=== PATIENT | male | born 1980 | race Two or more races ===

== ENCOUNTER 2018-08-11 14:11 | Emergency (ER) | payer BC ==
[~2018-08-11] VITALS: Ht 177.8 cm; Wt 117.9 kg
[2018-08-11] MEDS: cloNIDine HCL 0.1 MG TABLET PO ONE (14:45)
[2018-08-11 14:47] LABS: BASO # 0.1 x10^3/uL (0.0-0.2); BASO % 1 % (0-3); EOS # 0.3 x10^3/uL (0.0-0.7); EOS % 3 % (0-3); HEMATOCRIT 43.9 % (39.0-53.0); HEMOGLOBIN 15.5 g/dL (13.0-17.5); LYMPH # 3.5 x10^3/uL (1.0-4.8); LYMPH % 37 % (24-48); MEAN CORPUSCULAR HEMOGLOBIN 31 pg (25-35); MEAN CORPUSCULAR HGB CONC 35 g/dL (31-37); MEAN CORPUSCULAR VOLUME 88 fL (79-100); MONO # 0.8 x10^3/uL (0.0-1.1); MONO % 8 % (0-9); NEUT # 4.8 x10^3uL (1.8-7.7); NEUT % 51 % (31-73); PLATELET COUNT 213 x10^3/uL (140-400); RED BLOOD COUNT 4.97 x10^6/uL (4.30-5.70); RED CELL DISTRIBUTION WIDTH 13.5 % (11.5-14.5); WHITE BLOOD COUNT 9.6 x10^3/uL (4.0-11.0)
[2018-08-11 14:58] LABS: CALCIUM 8.7 mg/dL (8.5-10.1); CREATININE 0.8 mg/dL (0.7-1.3); GFR 107.6; POTASSIUM 3.8 mmol/L (3.5-5.1)
[2018-08-11 15:05] LABS: ALBUMIN 3.8 g/dL (3.4-5.0); ALBUMIN/GLOBULIN RATIO 1.3 (1.0-1.7); TOTAL BILIRUBIN 0.3 mg/dL (0.2-1.0); TOTAL PROTEIN 6.8 g/dL (6.4-8.2)
--- NOTE | 2018-08-11 15:20 | PHYS DOC ---
Past Medical History Past Medical History: No Pertinent History Alcohol Use: None Drug Use: None Adult General Chief Complaint Chief Complaint: CHEST PAIN HPI HPI Patient is a 38 year old male who presents with substernal chest pressure/ heaviness for the past one week. Patient also reports mild dyspnea, no nausea vomiting or sweats. No abdominal pain. Symptoms coincide with patient discontinuing smoking and starting Chantix. Last cigarette was over one week ago. Patient has not been taking blood pressure medication over the past week due to concern of occasional reaction with his Chantix. Blood pressure 90 ED arrival was 208/100. Denies headache, neck pain, extremity weakness or loss of sensation. No other acute symptoms or complaints.[] Review of Systems Review of Systems Review symptoms as per history of present illness. All other review symptoms are negative. All other systems were reviewed and found to be within normal limits, except as documented in this note. Current Medications Current Medications Allergies Allergies Physical Exam Physical Exam Constitutional: Well developed, well nourished, no acute distress, non-toxic appearance. [] HENT: Normocephalic, atraumatic, bilateral external ears normal, oropharynx moist, no oral exudates, nose normal. [] Eyes: PERRLA, EOMI, conjunctiva normal, no discharge. [] Neck: Normal range of motion, no tenderness, supple, no stridor. [] Cardiovascular:Heart rate regular rhythm, no murmur [] Lungs & Thorax: Bilateral breath sounds clear to auscultation [] Abdomen: Bowel sounds normal, soft, no tenderness. [] Skin: Warm, dry, no erythema, no rash. [] Back: No tenderness, no CVA tenderness. [] Extremities: No tenderness, no cyanosis, no clubbing, ROM intact, no edema. [] Neurologic: Alert and oriented X 3, normal motor function, normal sensory function, no focal deficits noted. [] Psychologic: Affect normal, judgement normal, mood normal. [] Current Patient Data Vital Signs Vital Signs Date Time Temp Pulse Resp B/P (MAP) Pulse Ox O2 Delivery O2 Flow Rate FiO2 08/11/18 14:20 98.1 77 18 173/101 (125) 98 Room Air 98.1 EKG EKG [EKG: Normal sinus rhythm, no acute ST-T wave changes on pulmonary ED review.] Radiology/Procedures Radiology/Procedures [Chest x-ray: No acute cardiopulmonary disease.] Course & Med Decision Making Course & Med Decision Making Pertinent Labs and Imaging studies reviewed. (See chart for details) [Atypical chest pain with accelerated hypertension. Clonidine given. EKG, troponin negative. Will admit for further observation and cardiac evaluation. Courtesy bridge orders provided. After thorough repeat conversation with the patient regarding benefits risks and alternatives of hospital admission for evaluation of cardiac related chest pain, the patient verbalizes his understanding and wishes instead be discharged from the emergency department. He prefers to follow-up with his primary care physician for outpatient workup. Patient is instructed to return to the hospital or ER if he changes his mind regarding hospital admission or if symptoms worsen. Dragon Disclaimer Dragon Disclaimer This electronic medical record was generated, in whole or in part, using a voice recognition dictation system. Departure Departure Impression: Primary Impression: Chest pain Additional Impression: Accelerated hypertension Disposition: ADMITTED INPATIENT Admitting Physician: Jose Greenwood Condition: GUARDED Referrals: JAKE PERKINS MD (PCP) Problem Qualifiers THERESE PADILLA DO Aug 11, 2018 15:20
[2018-08-11] MEDS ORDERED: ONDANSETRON PF 4 MG/2 ML VIAL. IV PRN (15:30)
--- NOTE | 2018-08-11 15:38 | RAD ---
Portable chest, 08/11/2018: HISTORY: Chest pain The heart size and pulmonary vascularity are normal. No pulmonary infiltrate is seen. There is no evidence of pleural fluid. IMPRESSION: No acute cardiopulmonary abnormality is detected. Electronically signed by: Sp Joshua MD (08/11/2018 3:35 PM) [facility]
--- NOTE | 2018-08-11 15:58 | EKG ---
[facility] [address] [place] [address] Test Date: 2018-08-11 Test Time: 14:27:38 Pat Name: MARY BRODERICK Department: Room: Gender: M Cleaning Professional: : 1980 Requested By: THERESE PADILLA Order Number: [id number] Reading MD: Jeremy Manning MD Measurements Intervals [place] Rate: 74 P: 24 [place]: 136 QRS: 52 QRSD: 90 T: 18 QT: 382 QTc: 429 Interpretive Statements SINUS RHYTHM Electronically Signed On 08-15-2018 10:53:52 CDT by Jeremy Manning MD
[2018-08-11 16:48] VITALS: BP 137/76
--- NOTE | 2018-08-11 16:49 | PDOC1 ---
History and Physical Date of Admission Date of Admission DATE: 08/11/18 TIME: 16:49 Identification/Chief Complaint Chief Complaint LEFT ANTERIOR CHEST PAIN, NO RADIATION, NOT RELATED TO FOOD Past Medical History Past Medical History Past Medical History: No Pertinent History Alcohol Use: None is a smoker father from stomach cancer Drug Use: None Cardiovascular: No pertinent hx Psych: No pertinent hx Dermatology: No pertinent hx Past Surgical History Past Surgical History: No pertinent history Family History Family History: Cancer Social History Smoke: 1 pack per day ALCOHOL: occassional Drugs: None Current Problem List Problem List Problems Medical Problems: (1) Accelerated hypertension Status: Acute (2) Chest pain Status: Acute Current Medications Current Medications Current Medications Clonidine HCl (Catapres) 0.2 mg 1X ONCE PO Last administered on 08/11/18at 14: 45; Start 08/11/18 at 14:45; Stop 08/11/18 at 14:55; Status DC Ondansetron HCl (Zofran) 4 mg PRN Q8HRS PRN IV NAUSEA/VOMITING; Start at 15:30; Stop 08/12/18 at 15:29 Allergies Allergies: Coded Allergies: No Known Drug Allergies (Unverified , 08/11/18) ROS General: No: Chills, Night Sweats, Fatigue, Malaise, Appetite, Other PSYCHOLOGICAL ROS: No: Anxiety, Behavioral Disorder, Concentration difficultie , Decreased libido, Depression, Disorientation, Hallucinations, Hostility, Irritablity, Memory difficulties, Mood Swings, Obsessive thoughts, Physical abuse, Sexual abuse, Sleep disturbances, Suicidal ideation, Other Eyes: No Blurry vision, No Decreased vision, No Double vision, No Dry eyes, No Excessive tearing, No Eye Pain, No Itchy Eyes, No Loss of vision, No Photophobia , No Scotomata, No Uses contacts, No Uses glasses, No Other HEENT: No: Heacaches, Visual Changes, Hearing change, Nasal congestion, Nasal discharge, Oral lesions, Sinus pain, Sore Throat, Epistaxis, Sneezing, Snoring, Tinnitus, Vertigo, Vocal changes, Other ALLERGY AND IMMUNOLOGY: No: Hives, Insect Bite Sensitivity, Itchy/Watery Eyes, Nasal Congestion, Post Nasal Drip, Seasonal Allergies, Other Hematological and Lymphatic: No: Bleeding Problems, Blood Clots, Blood Transfusions, Brusing, Night Sweats, Pallor, Swollen Lymph Nodes, Other Respiratory: No: Cough, Hemoptysis, Orthopnea, Pleuritic Pain, Shortness of breath, SOB with excertion, Sputum Changes, Stridor, Tachypnea, Wheezing, Other Cardiovascular: yes Chest Pain Gastrointestinal: No Nausea, No Vomiting, No Abdominal Pain, No Diarrhea, No Constipation, No Melena, No Hematochezia, No Other Genitourinary: No Dysuria, No Frequency, No Incontinence, No Hematuria, No Retention, No Discharge, No Urgency, No Pain, No Flank Pain, No Other, No , No , No , No , No , No , No Neurological: No Behavorial Changes, No Bowel/Bladder ControlChng, No Confusion , No Dizziness, No Gait Disturbance, No Headaches, No Impaired Coord/balance, No Memory Loss, No Numbness/Tingling, No Seizures, No Speech Problems, No Tremors, No Visual Changes, No Weakness, No Other Physical Exam General: Alert, Oriented X3, Cooperative, No acute distress HEENT: Atraumatic, PERRLA Lungs: Clear to auscultation Heart: S1S2, RRR, no murmurs Cardiovascular: S1, S2 Abdomen: Normal bowel sounds, Soft Rectal Exam: not examined PELVIC: Examination not indicated Extremities: No clubbing, No cyanosis Skin: No rashes, No breakdown, No significant lesion Neuro: Normal speech, Strength at 5/5 X4 ext, Normal tone, Sensation intact, Cranial nerves 3-12 NL Psych/Mental Status: Mental status NL, Mood NL Vitals Vitals Vital Signs Date Time Temp Pulse Resp B/P (MAP) Pulse Ox O2 Delivery O2 Flow Rate FiO2 08/11/18 15:23 66 16 140/89 (106) 97 08/11/18 14:20 98.1 Room Air 98.1 Labs Labs Laboratory Tests Test 08/11/18 14:35 White Blood Count 9.6 x10^3/uL (4.0-11.0) Red Blood Count 4.97 x10^6/uL (4.30-5.70) Hemoglobin 15.5 g/dL (13.0-17.5) Hematocrit 43.9 % (39.0-53.0) Mean Corpuscular Volume 88 fL (79-100) Mean Corpuscular Hemoglobin 31 pg (25-35) Mean Corpuscular Hemoglobin Concent 35 g/dL (31-37) Red Cell Distribution Width 13.5 % (11.5-14.5) Platelet Count 213 x10^3/uL (140-400) Neutrophils (%) (Auto) 51 % (31-73) Lymphocytes (%) (Auto) 37 % (24-48) Monocytes (%) (Auto) 8 % (0-9) Eosinophils (%) (Auto) 3 % (0-3) Basophils (%) (Auto) 1 % (0-3) Neutrophils # (Auto) 4.8 x10^3uL (1.8-7.7) Lymphocytes # (Auto) 3.5 x10^3/uL (1.0-4.8) Monocytes # (Auto) 0.8 x10^3/uL (0.0-1.1) Eosinophils # (Auto) 0.3 x10^3/uL (0.0-0.7) Basophils # (Auto) 0.1 x10^3/uL (0.0-0.2) D-Dimer (Lillian) < 0.27 ug/mlFEU Sodium Level 143 mmol/L (136-145) Potassium Level 3.8 mmol/L (3.5-5.1) Chloride Level 105 mmol/L (98-107) Carbon Dioxide Level 27 mmol/L (21-32) Anion Gap 11 (6-14) Blood Urea Nitrogen 10 mg/dL (8-26) Creatinine 0.8 mg/dL (0.7-1.3) Estimated GFR (Cockcroft-Gault) 107.6 BUN/Creatinine Ratio 13 (6-20) Glucose Level 93 mg/dL (70-99) Calcium Level 8.7 mg/dL (8.5-10.1) Total Bilirubin 0.3 mg/dL (0.2-1.0) Aspartate Amino Transf (AST/SGOT) 15 U/L (15-37) Alanine Aminotransferase (ALT/SGPT) 32 U/L (16-63) Alkaline Phosphatase 44 U/L (46-116) Troponin I Quantitative < 0.017 ng/mL (0.000-0.055) Total Protein 6.8 g/dL (6.4-8.2) Albumin 3.8 g/dL (3.4-5.0) Albumin/Globulin Ratio 1.3 (1.0-1.7) Lipase 97 U/L (73-393) Laboratory Tests Test 08/11/18 14:35 White Blood Count 9.6 x10^3/uL (4.0-11.0) Red Blood Count 4.97 x10^6/uL (4.30-5.70) Hemoglobin 15.5 g/dL (13.0-17.5) Hematocrit 43.9 % (39.0-53.0) Mean Corpuscular Volume 88 fL (79-100) Mean Corpuscular Hemoglobin 31 pg (25-35) Mean Corpuscular Hemoglobin Concent 35 g/dL (31-37) Red Cell Distribution Width 13.5 % (11.5-14.5) Platelet Count 213 x10^3/uL (140-400) Neutrophils (%) (Auto) 51 % (31-73) Lymphocytes (%) (Auto) 37 % (24-48) Monocytes (%) (Auto) 8 % (0-9) Eosinophils (%) (Auto) 3 % (0-3) Basophils (%) (Auto) 1 % (0-3) Neutrophils # (Auto) 4.8 x10^3uL (1.8-7.7) Lymphocytes # (Auto) 3.5 x10^3/uL (1.0-4.8) Monocytes # (Auto) 0.8 x10^3/uL (0.0-1.1) Eosinophils # (Auto) 0.3 x10^3/uL (0.0-0.7) Basophils # (Auto) 0.1 x10^3/uL (0.0-0.2) D-Dimer (Lillian) < 0.27 ug/mlFEU Sodium Level 143 mmol/L (136-145) Potassium Level 3.8 mmol/L (3.5-5.1) Chloride Level 105 mmol/L (98-107) Carbon Dioxide Level 27 mmol/L (21-32) Anion Gap 11 (6-14) Blood Urea Nitrogen 10 mg/dL (8-26) Creatinine 0.8 mg/dL (0.7-1.3) Estimated GFR (Cockcroft-Gault) 107.6 BUN/Creatinine Ratio 13 (6-20) Glucose Level 93 mg/dL (70-99) Calcium Level 8.7 mg/dL (8.5-10.1) Total Bilirubin 0.3 mg/dL (0.2-1.0) Aspartate Amino Transf (AST/SGOT) 15 U/L (15-37) Alanine Aminotransferase (ALT/SGPT) 32 U/L (16-63) Alkaline Phosphatase 44 U/L (46-116) Troponin I Quantitative < 0.017 ng/mL (0.000-0.055) Total Protein 6.8 g/dL (6.4-8.2) Albumin 3.8 g/dL (3.4-5.0) Albumin/Globulin Ratio 1.3 (1.0-1.7) Lipase 97 U/L (73-393) VTE Prophylaxis Ordered VTE Prophylaxis Devices: Yes VTE Pharmacological Prophylaxi: Yes Assessment/Plan Assessment/Plan impression 1. chest pain with risk factors for ASHD 2. TOBACCO ABUSE PLAN TELE ECHO SERIAL TROPONIN I CARDIOLOGY CONSULT LOVENOX DVT PROPHYLAXIS PT LEFT AMA 2 HRS POST ADMISSION GRIFFIN DOLL MD Aug 11, 2018 16:49
--- NOTE | 2018-08-11 17:54 | PDOC3 ---
Discharge Summary Date of Admission: Aug 11, 2018 Date of Discharge: Aug 11, 2018 Follow-Up: 1-2 days Admitting Diagnosis comment: dismissal dx chest pain tobacco abuse pt left ama 2 hrs post admission FINAL DIAGNOSIS Problems Medical Problems: (1) Accelerated hypertension Status: Acute (2) Chest pain Status: Acute Brief Hospital Course Mr. Quesada is a 38 old [sex] who presented with [ chest pain] CONDITION AT DISCHARGE: Comment (left ama) Discharge Medications Current Medications Clonidine HCl (Catapres) 0.2 mg 1X ONCE PO Last administered on 08/11/18at 14: 45; Start 08/11/18 at 14:45; Stop 08/11/18 at 14:55; Status DC Ondansetron HCl (Zofran) 4 mg PRN Q8HRS PRN IV NAUSEA/VOMITING; Start at 15:30; Stop 08/11/18 at 17:40; Status DC Vital Signs Vital Signs Date Time Temp Pulse Resp B/P (MAP) Pulse Ox O2 Delivery O2 Flow Rate FiO2 08/11/18 16:48 74 16 137/76 (96) 95 08/11/18 14:20 98.1 Room Air 98.1 Labs Laboratory Tests Test 08/11/18 14:35 White Blood Count 9.6 x10^3/uL (4.0-11.0) Red Blood Count 4.97 x10^6/uL (4.30-5.70) Hemoglobin 15.5 g/dL (13.0-17.5) Hematocrit 43.9 % (39.0-53.0) Mean Corpuscular Volume 88 fL (79-100) Mean Corpuscular Hemoglobin 31 pg (25-35) Mean Corpuscular Hemoglobin Concent 35 g/dL (31-37) Red Cell Distribution Width 13.5 % (11.5-14.5) Platelet Count 213 x10^3/uL (140-400) Neutrophils (%) (Auto) 51 % (31-73) Lymphocytes (%) (Auto) 37 % (24-48) Monocytes (%) (Auto) 8 % (0-9) Eosinophils (%) (Auto) 3 % (0-3) Basophils (%) (Auto) 1 % (0-3) Neutrophils # (Auto) 4.8 x10^3uL (1.8-7.7) Lymphocytes # (Auto) 3.5 x10^3/uL (1.0-4.8) Monocytes # (Auto) 0.8 x10^3/uL (0.0-1.1) Eosinophils # (Auto) 0.3 x10^3/uL (0.0-0.7) Basophils # (Auto) 0.1 x10^3/uL (0.0-0.2) D-Dimer (Lillian) < 0.27 ug/mlFEU Sodium Level 143 mmol/L (136-145) Potassium Level 3.8 mmol/L (3.5-5.1) Chloride Level 105 mmol/L (98-107) Carbon Dioxide Level 27 mmol/L (21-32) Anion Gap 11 (6-14) Blood Urea Nitrogen 10 mg/dL (8-26) Creatinine 0.8 mg/dL (0.7-1.3) Estimated GFR (Cockcroft-Gault) 107.6 BUN/Creatinine Ratio 13 (6-20) Glucose Level 93 mg/dL (70-99) Calcium Level 8.7 mg/dL (8.5-10.1) Total Bilirubin 0.3 mg/dL (0.2-1.0) Aspartate Amino Transf (AST/SGOT) 15 U/L (15-37) Alanine Aminotransferase (ALT/SGPT) 32 U/L (16-63) Alkaline Phosphatase 44 U/L (46-116) Troponin I Quantitative < 0.017 ng/mL (0.000-0.055) Total Protein 6.8 g/dL (6.4-8.2) Albumin 3.8 g/dL (3.4-5.0) Albumin/Globulin Ratio 1.3 (1.0-1.7) Lipase 97 U/L (73-393) Laboratory Tests Test 08/11/18 14:35 White Blood Count 9.6 x10^3/uL (4.0-11.0) Red Blood Count 4.97 x10^6/uL (4.30-5.70) Hemoglobin 15.5 g/dL (13.0-17.5) Hematocrit 43.9 % (39.0-53.0) Mean Corpuscular Volume 88 fL (79-100) Mean Corpuscular Hemoglobin 31 pg (25-35) Mean Corpuscular Hemoglobin Concent 35 g/dL (31-37) Red Cell Distribution Width 13.5 % (11.5-14.5) Platelet Count 213 x10^3/uL (140-400) Neutrophils (%) (Auto) 51 % (31-73) Lymphocytes (%) (Auto) 37 % (24-48) Monocytes (%) (Auto) 8 % (0-9) Eosinophils (%) (Auto) 3 % (0-3) Basophils (%) (Auto) 1 % (0-3) Neutrophils # (Auto) 4.8 x10^3uL (1.8-7.7) Lymphocytes # (Auto) 3.5 x10^3/uL (1.0-4.8) Monocytes # (Auto) 0.8 x10^3/uL (0.0-1.1) Eosinophils # (Auto) 0.3 x10^3/uL (0.0-0.7) Basophils # (Auto) 0.1 x10^3/uL (0.0-0.2) D-Dimer (Lillian) < 0.27 ug/mlFEU Sodium Level 143 mmol/L (136-145) Potassium Level 3.8 mmol/L (3.5-5.1) Chloride Level 105 mmol/L (98-107) Carbon Dioxide Level 27 mmol/L (21-32) Anion Gap 11 (6-14) Blood Urea Nitrogen 10 mg/dL (8-26) Creatinine 0.8 mg/dL (0.7-1.3) Estimated GFR (Cockcroft-Gault) 107.6 BUN/Creatinine Ratio 13 (6-20) Glucose Level 93 mg/dL (70-99) Calcium Level 8.7 mg/dL (8.5-10.1) Total Bilirubin 0.3 mg/dL (0.2-1.0) Aspartate Amino Transf (AST/SGOT) 15 U/L (15-37) Alanine Aminotransferase (ALT/SGPT) 32 U/L (16-63) Alkaline Phosphatase 44 U/L (46-116) Troponin I Quantitative < 0.017 ng/mL (0.000-0.055) Total Protein 6.8 g/dL (6.4-8.2) Albumin 3.8 g/dL (3.4-5.0) Albumin/Globulin Ratio 1.3 (1.0-1.7) Lipase 97 U/L (73-393) Allergies Allergies Coded Allergies Type Severity Reaction Last Updated Verified No Known Drug Allergies 08/11/18 No Disposition/Orders: Instructions/Orders (left ama) Patient Instructions d/c time 33 min GRIFFIN DOLL MD Aug 11, 2018 17:54
== END 2018-08-11 16:50 | disposition left against medical advice (07) ==
LOC: ER 14:11 → UNDOADMIN 14:30 → 5 SOUTH 14:30
DX: I10 Essential (primary) hypertension (principal); R07.89 Other chest pain; Z72.0 Tobacco use
CPT/HCPCS: 36415; 71045; 80053; 83690; 84484; 85025; 85379; 93005; 99285-25

== ENCOUNTER → 2018-08-19 | Outpatient (CLI) | payer OTHER, BC ==
[2018-08-11 16:48] VITALS: BP 137/76
--- NOTE | 2018-08-19 08:33 | EKG ---
[facility] [address] [place] [address] Test Date: 2018-08-19 Test Time: 08:23:45 Pat Name: MARY BRODERICK Department: Room: Gender: M Train Operator: : 1980 Requested By: STAFF NON Order Number: [id number] Reading MD: Jeremy Manning MD Measurements Intervals [place] Rate: 69 P: 10 CT: 128 QRS: 47 QRSD: 84 T: 42 QT: 396 QTc: 426 Interpretive Statements SINUS RHYTHM Electronically Signed On 08-22-2018 13:53:32 BANKRUPTCY LEGAL ASSISTANT by Jeremy Manning MD
[2018-08-19 09:03] LABS: BASO # 0.1 x10^3/uL (0.0-0.2); BASO % 1 % (0-3); EOS # 0.4 x10^3/uL (0.0-0.7); EOS % 3 % (0-3); HEMATOCRIT 46.7 % (39.0-53.0); HEMOGLOBIN 16.2 g/dL (13.0-17.5); LYMPH % 38 % (24-48); MEAN CORPUSCULAR HEMOGLOBIN 31 pg (25-35); MEAN CORPUSCULAR HGB CONC 35 g/dL (31-37); MEAN CORPUSCULAR VOLUME 89 fL (79-100); MONO % 10 % (0-9); NEUT # 5.3 x10^3uL (1.8-7.7); NEUT % 49 % (31-73); PLATELET COUNT 231 x10^3/uL (140-400); RED BLOOD COUNT 5.24 x10^6/uL (4.30-5.70); RED CELL DISTRIBUTION WIDTH 13.5 % (11.5-14.5); WHITE BLOOD COUNT 10.8 x10^3/uL (4.0-11.0)
[2018-08-19 09:13] LABS: PROTHROMBIN TIME PATIENT 12.9 SEC (11.7-14.0)
[2018-08-19 09:14] LABS: ALBUMIN 3.7 g/dL (3.4-5.0); ALBUMIN/GLOBULIN RATIO 0.9 (1.0-1.7); CALCIUM 9.3 mg/dL (8.5-10.1); CREATININE 0.8 mg/dL (0.7-1.3); GFR 107.6; POTASSIUM 3.7 mmol/L (3.5-5.1); TOTAL BILIRUBIN 0.3 mg/dL (0.2-1.0); TOTAL PROTEIN 7.6 g/dL (6.4-8.2)
--- NOTE | 2018-08-19 15:20 | RAD ---
Chest, 2 views, 08/19/2018: HISTORY: Preop for shoulder surgery Comparison is made to a study from 08/11/2018. The heart size and pulmonary vascularity are normal. No pulmonary infiltrate is seen. There is no evidence of pleural fluid. Mild spurring is present in the spine. IMPRESSION: No acute cardiopulmonary abnormality is detected. Electronically signed by: Sp Joshua MD (08/19/2018 3:17 PM) [facility]
== END | disposition home or self-care (01) ==
LOC: LAB 08:11
DX: Z01.818 Encounter for other preprocedural examination (principal); M19.012 Primary osteoarthritis, left shoulder
CPT/HCPCS: 36415; 71046; 80053; 85025; 85610; 85651; 85730; 93005

== ENCOUNTER → 2020-07-30 | Outpatient (CLI) | payer BC ==
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
== END ==
LOC: KCIC 10:03
PROVIDERS: ATTEND Family Medicine
DX: R07.89 Other chest pain (principal)
CPT/HCPCS: 71101